=== PATIENT | male | born 1960 | race Caucasian/White ===

== ENCOUNTER 2018-09-12 12:55 | Outpatient (REF) | payer OTHER, SELFPAY ==
[2018-09-12 14:49] LABS: Bilirubin Negative (Negative); Blood Negative (Negative); Clarity Clear; Glucose Negative (Negative); Ketones Negative (Negative); Leukocyte Esterase Negative (Negative); Nitrite Negative (Negative); Urobilinogen 0.2 EU/dL (Up TO 0.2); pH 5.5 (5-8)
[2018-09-13 14:04] LABS: Chlamydia Result Negative; GC Result Negative; Specimen Description URINE
== END 2018-09-12 13:15 ==
LOC: LBN 12:55
PROVIDERS: PCP Emergency Medicine; Visit Provider Family Medicine
DX: R39.11 Hesitancy of micturition (principal); N45.1 Epididymitis; Z11.6 Encounter for screening for other protozoal diseases and helminthiases
CPT/HCPCS: 87491; 87591; 81003